=== PATIENT | male | born 1945 | race Two or more races ===

== ENCOUNTER → 2018-07-21 | Day surgery (SDC) | payer MEDICARE, OTHER ==
[2018-07-18 14:53] LABS: Basophils # (auto) 0 uL; Lymphocytes # (auto) 2.5 uL; Neutrophils # (auto) 6.4 uL; Nucleated Red Blood Cells % 0.1 %; White Blood Cell 10.4 10^3/uL (4.4-10.8)
[2018-07-18 14:55] LABS: Basophils % (auto) 0.3 % (0.0-2.0); Eosinophils # (auto) 0.4 uL; Eosinophils % (auto) 3.6 % (0.0-7.0); Hematocrit 40.5 % (41.0-53.0); Mean Corpuscular Hemoglobin 22.2 pg (28.0-32.0); Mean Corpuscular Hgb Conc. 32.1 g/dL (32.0-36.0); Mean Corpuscular Volume 69.1 fL (80.0-100.0); Monocytes # (auto) 1.1 uL; Monocytes % (auto) 10.4 % (0.0-12.0); Neutrophils % (auto) 61.7 % (37.0-80.0); Platelet Count (auto) 190 10^3/uL (140-450); Red Blood Cells 5.85 10^6/uL (4.5-5.90); Red Cell Distribution Width 16.2 % (11.8-14.3)
[2018-07-18 15:24] LABS: INR 0.93 (0.9-1.15); Partial Thromboplastin Time 29.9 sec (23.78-33.04)
[~2018-07-21] VITALS: Ht 170.2 cm; Wt 79.4 kg
[~2018-07-21] MED LIST: ALLO300T2 PO; CETI-120 PO; FLUN0.02; LACTCAP3 OR; LIDO5DIS21 TOP; MAGN250T3 PO; METO25TA5 PO; MULTTAB61 PO; SERT-275 PO; SODIUM CHLORIDE LOCK 10 ML ONE; TAMS0.4C36 PO; TEMA30CA PO; diphenhdrAMINE HCL 50 MG/1 ML VL ONE
[2018-07-21] MEDS: fentaNYL CITRATE 100 MCG/2 ML VL ONE ×2 (12:10→12:14)
[2018-07-21] MEDS: MIDAZOLAM HCL 5 MG/ML-1ML VIAL ONE ×2 (12:10→12:14)
[2018-07-21 13:06] VITALS: BP 132/78
== END | disposition home or self-care (01) ==
LOC: GI 09:58
PROVIDERS: ATTEND Internal Medicine Gastroenterology
DX: Z12.11 Encounter for screening for malignant neoplasm of colon (principal); D12.3 Benign neoplasm of transverse colon; D12.4 Benign neoplasm of descending colon; K63.5 Polyp of colon; K57.30 Diverticulosis of large intestine without perforation or abscess without bleeding
CPT/HCPCS: 36415; 45380; 85025; 85610; 85730; J1200; J2250; J3010; J7030; G0500

== ENCOUNTER → 2019-05-21 | Outpatient (CLI) | payer MEDICARE, OTHER ==
[~2019-05-21] VITALS: Ht 170.2 cm; Wt 81.6 kg
[~2019-05-21] MED LIST changes: +ADENOSINE 69 MG in GIVE UN-DILUTED 0 ML IV STA; -SODIUM CHLORIDE LOCK 10 ML ONE; -diphenhdrAMINE HCL 50 MG/1 ML VL ONE
== END | disposition home or self-care (01) ==
LOC: XYW 09:56
PROVIDERS: ATTEND Internal Medicine
DX: I10 Essential (primary) hypertension (principal); R07.9 Chest pain, unspecified; R06.00 Dyspnea, unspecified
CPT/HCPCS: 78452; 93017; A9500; J0153

== ENCOUNTER → 2020-01-26 | Outpatient (CLI) | payer MEDICARE, OTHER ==
[~2020-01-26] MED LIST changes: -ADENOSINE 69 MG in GIVE UN-DILUTED 0 ML IV STA; +MULT-1018 PO; -MULTTAB61 PO
[2020-01-26 11:12] LABS: Basophils # (auto) 0.1 10 ^3/uL (0-0.2); Eosinophils # (auto) 0.4 10 ^3/uL (0-0.8); Lymphocytes # (auto) 2.6 10 ^3/uL (0.4-5.4); Mean Corpuscular Hgb Conc. 31.6 g/dL (32.0-36.0)
[2020-01-26 11:14] LABS: Basophils % (auto) 0.6 % (0.0-2.0); Eosinophils % (auto) 3.5 % (0.0-7.0); Hematocrit 41.2 % (41.0-53.0); Mean Corpuscular Hemoglobin 21.9 pg (28.0-32.0); Mean Corpuscular Volume 69.4 fL (80.0-100.0); Monocytes % (auto) 10.3 % (0.0-12.0); Neutrophils % (auto) 59.6 % (37.0-80.0); Nucleated Red Blood Cells % 0.2 %; Platelet Count (auto) 200 10^3/uL (140-450); Red Blood Cells 5.93 10^6/uL (4.5-5.90); Red Cell Distribution Width 15.8 % (11.8-14.3); White Blood Cell 10.1 10^3/uL (4.4-10.8)
[2020-01-26 11:44] LABS: Albumin 3.7 g/dL (3.4-5.0); Calcium 8.6 mg/dL (8.5-10.1); Potassium 3.5 mmol/L (3.5-5.1)
[2020-01-26 11:48] LABS: BUN/Creatinine Ratio 12.1; Total Protein 8.1 g/dL (6.4-8.2); Uric Acid 9.4 mg/dL (3.5-7.2)
== END | disposition home or self-care (01) ==
LOC: LAB 10:52
PROVIDERS: ATTEND Internal Medicine
DX: N40.0 Benign prostatic hyperplasia without lower urinary tract symptoms (principal); I10 Essential (primary) hypertension; D72.829 Elevated white blood cell count, unspecified; K76.0 Fatty (change of) liver, not elsewhere classified
CPT/HCPCS: 36415; 80053; 84153; 84550; 85025

== ENCOUNTER 2020-12-08 09:08 | Day surgery (SDC) | payer MEDICARE, OTHER ==
[2020-12-05 09:06] LABS: Basophils # (auto) 0.1 10 ^3/uL (0-0.2); Nucleated Red Blood Cells % 0.2 %
[2020-12-05 09:08] LABS: Basophils % (auto) 0.5 % (0.0-2.0); Eosinophils # (auto) 0.4 10 ^3/uL (0-0.8); Eosinophils % (auto) 3.7 % (0.0-7.0); Hematocrit 40.5 % (41.0-53.0); Hemoglobin 12.7 g/dL (13.5-17.5); Lymphocytes # (auto) 2.7 10 ^3/uL (0.4-5.4); Lymphocytes % (auto) 22.2 % (10.0-50.0); Mean Corpuscular Hemoglobin 21.7 pg (28.0-32.0); Mean Corpuscular Hgb Conc. 31.3 g/dL (32.0-36.0); Mean Corpuscular Volume 69.1 fL (80.0-100.0); Monocytes # (auto) 1.1 10 ^3/uL (0-1.3); Monocytes % (auto) 8.8 % (0.0-12.0); Neutrophils # (auto) 7.8 10 ^3/uL (1.6-8.6); Neutrophils % (auto) 64.8 % (37.0-80.0); Red Blood Cells 5.87 10^6/uL (4.5-5.90); Red Cell Distribution Width 16.5 % (11.8-14.3)
[2020-12-05 09:20] LABS: INR 0.95 (0.9-1.15); Partial Thromboplastin Time 28.8 sec (23.0-31.2)
[2020-12-05 09:29] LABS: Potassium 3.3 mmol/L (3.5-5.1)
[2020-12-05 09:36] LABS: Albumin 3.9 g/dL (3.4-5.0); BUN/Creatinine Ratio 12.9; Bilirubin, Total 0.8 mg/dL (0.2-1.0); Calcium 8.7 mg/dL (8.5-10.1); Total Protein 7.9 g/dL (6.4-8.2)
[2020-12-05 10:26] LABS: Urine Bacteria NONE SEEN /hpf (None Seen); Urine Blood Negative /uL (Negative); Urine Mucus FEW (None Seen); Urine Specific Gravity 1.025 (1.001-1.035); Urine WBC 7 /hpf (0 - 3)
[~2020-12-08] VITALS: Ht 170.2 cm; Wt 76.7 kg
[~2020-12-08 09:08] MED LIST changes: +CHLO25TA2 PO; +DOXE10CA PO; +FLUT250M2 INH; +PANT1INJ3 PO; -SERT-275 PO; +SERT25TA14 PO
[2020-12-08] MEDS ORDERED: fentaNYL CITRATE 100 MCG/2 ML VL ONE (09:45)
[2020-12-08] MEDS ORDERED: PROPOFOL 10 MG/ML 20 ML IV ONE (09:45)
[2020-12-08] MEDS ORDERED: BUPIVACAINE/DEXTROSE MPF 0.75% 2 ML AMP IT ONE (09:45)
[2020-12-08] MEDS ORDERED: ONDANSETRON HCL 4 MG/2 ML VIAL ONE (09:45)
[2020-12-08] MEDS ORDERED: MIDAZOLAM HCL 2MG/2ML 2ml VIAL (1mg/ml) ONE ×2 (09:45→11:03)
[2020-12-08] MEDS ORDERED: SODIUM CHLORIDE LOCK 10 ML ONE (09:45)
[2020-12-08] MEDS ORDERED: CIPROFLOXACIN 400MG/200ML 200 ML IV ONE (10:36)
[2020-12-08] MEDS ORDERED: SUCCINYLCHOLINE CHLORIDE 20 MG/ML 10ML VIAL IV ONE (11:00)
[2020-12-08] MEDS ORDERED: TETRACAINE 1% INJ 2 ML VIAL IJ ONE (11:00)
[2020-12-08] MEDS ORDERED: LIDOCAINE 2% (LOCAL ANESTH.) PF 5ml SDV ONE (11:19)
[2020-12-08] MEDS ORDERED: MORPHINE SULFATE 4 MG/ML SYR/VIAL IV PRN (11:45)
[2020-12-08] MEDS ORDERED: ONDANSETRON HCL 4 MG/2 ML VIAL IV PRN (11:45)
[2020-12-08] MEDS ORDERED: HYDROmorphone HCL 2 MG/ML VL IV PRN (11:45)
[2020-12-08 17:30] VITALS: BP 134/68
== END 2020-12-08 18:00 | disposition home or self-care (01) ==
LOC: SUR 09:08
PROVIDERS: ATTEND Urology
DX: N40.1 Benign prostatic hyperplasia with lower urinary tract symptoms (principal); C67.4 Malignant neoplasm of posterior wall of bladder; N13.8 Other obstructive and reflux uropathy; I11.0 Hypertensive heart disease with heart failure; I50.30 Unspecified diastolic (congestive) heart failure; J44.9 Chronic obstructive pulmonary disease, unspecified; K21.9 Gastro-esophageal reflux disease without esophagitis; E78.5 Hyperlipidemia, unspecified; F41.9 Anxiety disorder, unspecified; M10.9 Gout, unspecified; F32.9 Major depressive disorder, single episode, unspecified; Z91.09 Other allergy status, other than to drugs and biological substances; Z79.899 Other long term (current) drug therapy; Z98.890 Other specified postprocedural states; Z87.891 Personal history of nicotine dependence; Z20.822 Contact with and (suspected) exposure to COVID-19
CPT/HCPCS: 36415; 52240; 52601; 80053; 81001; 85025; 85610; 85730; J0330; J0744; J2001; J2250; J2405; J2704; J3010; U0003

== ENCOUNTER → 2020-12-15 | Outpatient (CLI) | payer MEDICARE, OTHER ==
[2020-12-15 12:06] LABS: Urine Bacteria FEW /hpf (None Seen); Urine Blood 3+ /uL (Negative); Urine Mucus FEW (None Seen); Urine Specific Gravity 1.017 (1.001-1.035)
[2020-12-15 12:07] LABS: Urine WBC 5 /hpf (0 - 3)
== END | disposition home or self-care (01) ==
LOC: LAB 11:32
PROVIDERS: ATTEND Urology
DX: R31.9 Hematuria, unspecified (principal)
CPT/HCPCS: 81001; 87086

== ENCOUNTER → 2021-07-24 | Outpatient (CLI) | payer MEDICARE, OTHER | END | disposition home or self-care (01) | LOC: XYW 08:41 | PROVIDERS: ATTEND Internal Medicine | DX: I08.8 Other rheumatic multiple valve diseases (principal); I10 Essential (primary) hypertension | CPT/HCPCS: 93306 ==

== ENCOUNTER → 2021-10-17 | Outpatient (CLI) | payer MEDICARE, OTHER | END | disposition home or self-care (01) | LOC: LAB 10:22 | PROVIDERS: ATTEND Internal Medicine Pulmonary Disease | DX: Z01.812 Encounter for preprocedural laboratory examination (principal); Z20.822 Contact with and (suspected) exposure to COVID-19 | CPT/HCPCS: 36415; 87426 ==

== ENCOUNTER → 2021-10-18 | Outpatient (CLI) | payer MEDICARE, OTHER ==
[~2021-10-18] MED LIST changes: +ALBUTEROL SULF 2.5 MG/0.5ML(0.5%) NEB SOLN ONE
== END | disposition home or self-care (01) ==
LOC: RT 11:19
PROVIDERS: ATTEND Internal Medicine
DX: R06.02 Shortness of breath (principal)
CPT/HCPCS: 94060; 94727; 94729

== ENCOUNTER → 2021-11-30 | Outpatient (CLI) | payer MEDICARE, OTHER ==
[~2021-11-30] MED LIST changes: -ALBUTEROL SULF 2.5 MG/0.5ML(0.5%) NEB SOLN ONE
== END | disposition home or self-care (01) ==
LOC: XY 07:53
PROVIDERS: ATTEND Internal Medicine
DX: R06.02 Shortness of breath (principal); I10 Essential (primary) hypertension; E78.5 Hyperlipidemia, unspecified
CPT/HCPCS: 78452; 93017; A9500

== ENCOUNTER 2024-07-28 08:19 | Day surgery (SDC) | payer MEDICARE, OTHER ==
[2024-07-23 12:22] LABS: Urine Bacteria None Seen /hpf (None Seen); Urine WBC None Seen /hpf (0 - 3)
[2024-07-23 12:30] LABS: Eosinophils # (auto) 0.2 10 ^3/uL (0-0.8); Hemoglobin 12.8 g/dL (13.5-17.5); Neutrophils # (auto) 6.9 10 ^3/uL (1.6-8.6); Red Blood Cells 5.82 10^6/uL (4.5-5.90)
[2024-07-23 12:33] LABS: Basophils # (auto) 0.1 10 ^3/uL (0-0.2); Basophils % (auto) 0.8 % (0.0-2.0); Hematocrit 40.3 % (41.0-53.0); Lymphocytes # (auto) 2.3 10 ^3/uL (0.4-5.4); Lymphocytes % (auto) 21.6 % (10.0-50.0); Mean Corpuscular Hgb Conc. 31.7 g/dL (32.0-36.0); Mean Corpuscular Volume 69.2 fL (80.0-100.0); Monocytes # (auto) 1.2 10 ^3/uL (0-1.3); Neutrophils % (auto) 64.6 % (37.0-80.0); Nucleated Red Blood Cells % 0.1 %; Platelet Count (auto) 229 10^3/uL (140-450); Red Cell Distribution Width 15.6 % (11.8-14.3); White Blood Cell 10.8 10^3/uL (4.4-10.8)
[2024-07-23 12:44] LABS: INR 0.99 (0.9-1.15); Partial Thromboplastin Time 29.6 SEC (24.5-34.5); Prothrombin Time 10.5 sec (9.3-11.8)
[2024-07-23 13:07] LABS: Anisocytosis Slight; Hypochromia Slight; Platelet Estimate Adequate; Target Cell FEW
[2024-07-23 13:10] LABS: Alanine Aminotransferase 24 U/L (7-40); Alkaline Phosphatase 66 U/L (46-116); Anion Gap 5 (5-15); Aspartate Aminotransferase 29 U/L (13-40); BUN/Creatinine Ratio 15.3 (10.0-20.0); Blood Urea Nitrogen 19 mg/dL (9-23); Carbon Dioxide 29 mmol/L (20-31); Chloride 105 mmol/L (98-107); Glucose 82 mg/dL (74-106); Potassium 4.4 mmol/L (3.5-5.1); Sodium 139 mmol/L (136-145)
[2024-07-23 13:11] LABS: Albumin 4.4 g/dL (3.2-4.8); Total Protein 7.6 g/dL (5.7-8.2)
[2024-07-23 13:17] LABS: Urine Blood Negative /uL (Negative); Urine Clarity Clear (Clear); Urine Color Yellow (Yellow); Urine Protein, UAD Negative (Negative); Urine Specific Gravity 1.017 (1.001-1.035); Urine Urobilinogen Normal (Negative)
[~2024-07-28] VITALS: Ht 170.2 cm; Wt 72.6 kg
[~2024-07-28 08:19] MED LIST changes: +ACET-1881 PO; +ALBUAER3 IN; -ALLO300T2 PO; -CHLO25TA2 PO; +DIPH-616 PO; -FLUN0.02; +FLUT1AER6 IN; +IPRA0.00 IN; -LIDO5DIS21 TOP; +LISI2.5T47 PO; -MAGN250T3 PO; +MECL1TAB42 PO; -METO25TA5 PO; -PANT1INJ3 PO; +PANT40T PO; -SERT25TA14 PO; +SERT25TA28 PO; -TAMS0.4C36 PO; -TEMA30CA PO; +[UNRECOGNIZED DRUG - CODE] DT; +[UNRECOGNIZED DRUG - CODE] SC
[2024-07-28 12:20] VITALS: PULSE 57; RESP 14; O2SAT 99
[2024-07-28] MEDS ORDERED: SODIUM CHLORIDE LOCK 10 ML ONE (12:20)
[2024-07-28] MEDS: MIDAZOLAM HCL 5 MG/ML-1ML VIAL ONE (12:26)
[2024-07-28] MEDS: fentaNYL CITRATE 100 MCG/2 ML VL ONE (12:26)
[2024-07-28] MEDS: diphenhdrAMINE HCL 50 MG/1 ML VL ONE (12:26)
[2024-07-28] MEDS: LIDOCAINE VISCOUS 2% 15ML UD ONE (12:26)
--- NOTE | 2024-07-28 12:42 | DVHOP2 ---
Operative Report DATE OF OPERATION: 07/28/24 PROCEDURE: Upper Endoscopy with biopsy. PREOPERATIVE INDICATION: The patient is a 78 -year-old male undergoing endoscopy for anemia and chronic GERD POSTOPERATIVE DIAGNOSES: 1. 2 cm sliding-type hiatal hernia with slightly irregular squamocolumnar junction grade a erosive esophagitis 2. There were some yellowish whitish plaques in the proximal esophagus suggestive of candidal esophagitis from which biopsies were obtained 3. [id number] gastritis with pre-pyloric antral gastric erosions 4. Patient had mild duodenitis and there was an abnormal area of narrowing or stricture in the postbulbar area likely healed duodenal ulcer with no active ulceration at this time PROCEDURE PERFORMED BY: Keegan Cheema GI NURSE: Samaria SCOPE: Olympus videoendoscope. ASA CLASS: 2. PREOPERATIVE MEDICATIONS: Versed 3 mg, Fentanyl 75 mcg, Benadryl 50 mg I administered moderate sedation throughout this _8_ minutes procedure. An independent trained observer pushed medications at my direction, and monitored the patient's level of consciousness and physiological status throughout. PROCEDURE IN DETAIL: After obtaining an informed consent, the patient was placed on left lateral decubitus position. The patient was then sedated with the above medications. A bite block was placed between his teeth. The endoscope was then passed through the oropharynx, into the esophagus, and through the stomach and pylorus up to the second and third part of the duodenum. The endoscope was then withdrawn. The 2nd and 3rd part of the duodenal were normal. There was good bile drainage. The duodenal bulb showed duodenitis. In the postbulbar area there was an area of narrowing or stricture which appeared inflammatory and possibly related to a healed duodenal ulcer At this time no active ulceration was seen and there was no bleeding. The pre- pyloric area antrum and body showed moderate gastritis with pre-pyloric antral gastric erosions. On retroflexion the fundus cardia and angularis were normal. The endoscope was then withdrawn into the distal esophagus. Patient had a 2 cm sliding-type hiatal hernia with slightly irregular squamocolumnar junction and grade a erosive esophagitis. GE junction biopsies were obtained. In the proximal esophagus the patient had some whitish plaques suggestive of candidal esophagitis from which biopsies were also obtained. Oropharynx was normal. The patient tolerated the procedure well without difficulty. COMPLICATIONS : None SPECIMENS: Duodenal biopsies Gastric biopsies Esophageal biopsies DISPOSITION: Stable D/C to home PLAN: 1. Await for biopsy result 2. Will place pt on Protonix 40 mg bid 3. Nystatin swish and swallow 5 mL p.o. three times a day 4. Resume soft mechanical diet advance as tolerated 5. Outpatient follow up with me in 2-4 weeks to review results and discuss further management KEEGAN CHEEMA MD Jul 28, 2024 12:42
[2024-07-28] MEDS: MIDAZOLAM HCL 2MG/2ML 2ml VIAL (1mg/ml) ONE (12:43)
[2024-07-28 13:07] VITALS: RESP 17; TEMP 97.4; O2SAT 99
--- NOTE | 2024-07-28 13:10 | DVHOP2 ---
Operative Report DATE OF OPERATION: 07/28/24 PROCEDURE: Colonoscopy with snare polypectomy. PREOPERATIVE INDICATION: The patient is a 78 -year-old male undergoing colonoscopy for surveillance with personal history of colon polyps POSTOPERATIVE DIAGNOSES: 1. Two less than 1 cm benign-appearing ascending colon polyps one removed by cold biopsy and the other by cold snare polypectomy 2. There were two less than 1 cm benign-appearing transverse colon polyps one removed by hot snare polypectomy and the other by cold snare polypectomy 3. There were two less than 5 mm benign-appearing descending colon polyps one removed by cold snare polypectomy and the other by cold biopsy forceps 4. There was a 2 mm benign-appearing sigmoid polyp that was seen and removed by cold biopsy forceps 5. Trace internal hemorrhoids otherwise normal examination up to the cecum and terminal ileum PROCEDURE PERFORMED BY: Keegan Cheema M.D. SCOPE: Olympus videocolonoscope. ASA CLASS: 2. PREOPERATIVE MEDICATIONS: Versed 5 mg, Fentanyl 100 mcg, Benadryl 50 mg PROCEDURE IN DETAIL: After obtaining an informed consent, the patient was placed on left lateral decubitus position. He was then sedated with the above medications. A rectal examination was performed that was normal. The colonoscope was then passed through the anus into the rectosigmoid and through the descending, transverse, and ascending colon up to the cecum with visualization of the appendiceal orifice, base of the cecum and the ileocecal valve. The colonoscope was then withdrawn. The distal 5-10 cm of the terminal ileum were normal. There were two less than 1 cm benign-appearing ascending colon polyps. One was removed by cold biopsy forceps and the other by cold snare polypectomy There were two less than 1 cm benign-appearing transverse colon polyps one was removed by hot snare polypectomy and the other by cold snare polypectomy There were two less than 5 mm benign-appearing descending colon polyps one was removed by cold biopsy and the other by cold snare polypectomy. There was also a 2 mm benign-appearing sigmoid polyp that was seen and removed by cold biopsy forceps. On retroflexion and straight on view he had trace to 1+ internal hemorrhoids The patient tolerated the procedure well without difficulty. WITHDRAWAL TIME: 15 minutes QUALITY OF THE PREP: Loraine Bowel Prep score: 9. COMPLICATIONS : None SPECIMENS: Ascending colon polyps x2 Transverse colon polyps x2 Descending colon polyps x2 Sigmoid polyp x1 DISPOSITION: Stable D/C to home PLAN: 1. Repeat colonoscopy base on biopsy result likely in 2-3 years 2. Resume GI soft diet advance as tolerated 3. Hold aspirin NSAIDs and blood thinners for one week 4. Outpatient follow up with me in 2-4 weeks to review results and discuss further management KEEGAN CHEEMA MD Jul 28, 2024 13:10
[2024-07-28 13:35] VITALS: BP 115/66; PULSE 70; RESP 17; O2SAT 99
== END 2024-07-28 15:43 | disposition home or self-care (01) ==
LOC: GI 08:19
PROVIDERS: ATTEND Internal Medicine Gastroenterology
DX: D50.9 Iron deficiency anemia, unspecified (principal); D12.2 Benign neoplasm of ascending colon; D12.4 Benign neoplasm of descending colon; D12.5 Benign neoplasm of sigmoid colon; D12.3 Benign neoplasm of transverse colon; K29.50 Unspecified chronic gastritis without bleeding; B37.81 Candidal esophagitis; K29.80 Duodenitis without bleeding; K21.9 Gastro-esophageal reflux disease without esophagitis; K44.9 Diaphragmatic hernia without obstruction or gangrene; K22.10 Ulcer of esophagus without bleeding; K25.9 Gastric ulcer, unspecified as acute or chronic, without hemorrhage or perforation; J45.909 Unspecified asthma, uncomplicated; Z85.51 Personal history of malignant neoplasm of bladder; Z86.0100 Personal history of colon polyps, unspecified
CPT/HCPCS: 36415; 43239; 45380; 45385; 80053; 81001; 85025; 85610; 85730; 88305; 88312; 88342; J1200; J2250; J3010; 99152; 99153

== ENCOUNTER → 2024-11-03 | Outpatient (CLI) | payer MEDICARE, OTHER ==
[2024-11-03 11:14] LABS: Basophils # (auto) 0 10 ^3/uL (0-0.2); Basophils % (auto) 0.5 % (0.0-2.0); Eosinophils # (auto) 0.4 10 ^3/uL (0-0.8); Mean Corpuscular Hemoglobin 21.9 pg (28.0-32.0); Monocytes # (auto) 0.9 10 ^3/uL (0-1.3)
[2024-11-03 11:17] LABS: Eosinophils % (auto) 4.2 % (0.0-7.0); Hematocrit 39.9 % (41.0-53.0); Hemoglobin 12.8 g/dL (13.5-17.5); Lymphocytes # (auto) 2.3 10 ^3/uL (0.4-5.4); Lymphocytes % (auto) 25.8 % (10.0-50.0); Mean Corpuscular Volume 68.4 fL (80.0-100.0); Monocytes % (auto) 9.5 % (0.0-12.0); Neutrophils # (auto) 5.4 10 ^3/uL (1.6-8.6); Nucleated Red Blood Cells % 0.1 %; Platelet Count (auto) 210 10^3/uL (140-450); Red Blood Cells 5.83 10^6/uL (4.5-5.90); Red Cell Distribution Width 15.8 % (11.8-14.3)
[2024-11-03 11:45] LABS: Alanine Aminotransferase 31 U/L (7-40); Albumin 4.6 g/dL (3.2-4.8); Alkaline Phosphatase 59 U/L (46-116); Anion Gap 8 (5-15); Aspartate Aminotransferase 39 U/L (13-40); BUN/Creatinine Ratio 12.3 (10.0-20.0); Blood Urea Nitrogen 15 mg/dL (9-23); Carbon Dioxide 27 mmol/L (20-31); Chloride 105 mmol/L (98-107); HDL Cholesterol 56 mg/dL (40-59); Potassium 4.6 mmol/L (3.5-5.1); Sodium 140 mmol/L (136-145); Total Protein 7.6 g/dL (5.7-8.2); Triglycerides 93 mg/dL (< 150)
[2024-11-03 11:48] LABS: Free T3 3.3 pg/mL (2.3-4.2)
[2024-11-03 11:49] LABS: Free T4 (Free Thyroxine) 1.31 ng/dL (0.89-1.76)
[2024-11-03 11:51] LABS: Bilirubin, Total 1.4 mg/dL (0.2-1.0); Cholesterol 204 mg/dL (< 200); Glucose 107 mg/dL (74-106); LDL Cholesterol 127 mg/dL (< 100)
== END | disposition home or self-care (01) ==
LOC: LAB 10:54
PROVIDERS: ATTEND Internal Medicine
DX: I35.1 Nonrheumatic aortic (valve) insufficiency (principal); I10 Essential (primary) hypertension; E78.5 Hyperlipidemia, unspecified
CPT/HCPCS: 36415; 80053; 80061; 84439; 84443; 84481; 85025

== ENCOUNTER 2025-01-19 09:48 | Outpatient (CLI) | payer MEDICARE, OTHER ==
[~2025-01-19] VITALS: Ht 30.5 cm; Wt 0.0 kg
[2025-01-19] MEDS: REGADENOSON 0.4 MG/5 ML SYRG IV ONE ×2 (11:46→11:57)
--- NOTE | 2025-01-20 17:19 | DVHSR ---
APPROVED REPORT Exam: Nuclear Stress Test Indication: SOB Stress Tech: Casi Sparks Ht: 5 ft 7 in Wt: 163 lbs BSA: 1.85 m2 HR: 50 bpm BP: 164/68 mmHg BMI: 25.52 Rhythm: Bradycardia Medical History Medical History: HTN, EF 60% Allergies: No known drug allergies Stress Test Details Stress Test: Pharmacologic stress testing performed using 0.4 mg of regadenoson per 5 mL given IV ov er 10 seconds. Reason for pharmacologic stress test: SOB. HR Resting HR: 50 bpmMax Heart Rate (APMHR): 141.887395 bpm Max HR Achieved: 83 bpmTarget HR (85% APMHR): 119.069053 bpm % of APMHR: 58.87 Recovery HR: 73 bpm BP Resting BP: 164/68 mmHg Recovery BP: 140/66 mmHg ECG Resting ECG: Sinus Bradycardia Clinical Reason for Termination: Completed protocol Nurse Comments Uneventful stress test performed per protocol. Patient tolerated well and was taken back to [facility] via wheel chair in stable condition by tech. Stress ECG Conclusion lvef 52% no stress induced ischemia noted NM EXAM: Myocardial Perfusion REST/STRESS Imaging Protocol: Rest Tc-99m/Stress Tc-99m 1 day Resting Data Rest SPECT myocardial perfusion imaging was performed in supine position 60 minutes following the int ravenous injection of 12.1 mCi of Tc-99m Sestamibi. Time of rest injection: 10:30 Date: 01/19/2025 Time of rest imagin:30 Date: 01/19/2025 Administration Route: IV Administration Site: Left Arm Pharmacologic Stress Pharmacologic stress test was performed by injecting Regadenoson 0.4 mg IV push followed by the intra venous injection of 28.8 mCi of Tc-99m Sestamibi. Time of stress injection: 12:05 Date: 01/19/2025 Time of stress imagin:05 Date: 01/19/2025 Administration Route: IV Administration Site: Left Arm Gated Stress SPECT was performed 60 minutes after stress injection. The images were gated to evaluate regional wall motion and calculate left ventricular ejection fracti on. Stress only was performed in the Supine position. Nuclear Conclusion Nuclear Findings: negative for ischemia lvef 52% no stress induced ischemia noted
== END 2025-01-19 17:00 | disposition home or self-care (01) ==
LOC: XYW 09:48
PROVIDERS: ATTEND Internal Medicine
DX: R06.02 Shortness of breath (principal); I35.1 Nonrheumatic aortic (valve) insufficiency; I10 Essential (primary) hypertension
CPT/HCPCS: 78452; 93017; A9500; J2785

== ENCOUNTER 2025-04-29 10:47 | Outpatient (CLI) | payer MEDICARE, OTHER ==
[2025-04-29 11:08] LABS: Hematocrit 42.0 % (41.0-53.0); Hemoglobin 13.6 g/dL (13.5-17.5); Mean Corpuscular Hemoglobin 22.8 pg (28.0-32.0); Mean Corpuscular Volume 70.2 fL (80.0-100.0); Nucleated Red Blood Cells % 0.1 %
[2025-04-29 11:33] LABS: Albumin 4.4 g/dL (3.2-4.8); Alkaline Phosphatase 62 U/L (46-116); Anion Gap 8 (5-15); BUN/Creatinine Ratio 10.9 (10.0-20.0); Blood Urea Nitrogen 15 mg/dL (9-23); Calcium 9.3 mg/dL (8.7-10.4); Carbon Dioxide 28 mmol/L (20-31); Chloride 104 mmol/L (98-107); Cholesterol 197 mg/dL (< 200); Glucose 104 mg/dL (74-106); HDL Cholesterol 55 mg/dL (40-59); Potassium 4.6 mmol/L (3.5-5.1); Sodium 140 mmol/L (136-145); Total Protein 7.8 g/dL (5.7-8.2); Triglycerides 101 mg/dL (< 150)
[2025-04-29 11:36] LABS: Alanine Aminotransferase 45 U/L (7-40); Bilirubin, Total 1.4 mg/dL (0.2-1.0)
[2025-04-29 11:38] LABS: Free T3 3.1 pg/mL (2.3-4.2)
[2025-04-29 11:39] LABS: Free T4 (Free Thyroxine) 1.3 ng/dL (0.89-1.76)
== END 2025-04-29 17:00 | disposition home or self-care (01) ==
LOC: LAB 10:47
PROVIDERS: ATTEND Internal Medicine
DX: I10 Essential (primary) hypertension (principal); I35.1 Nonrheumatic aortic (valve) insufficiency; E78.5 Hyperlipidemia, unspecified
CPT/HCPCS: 36415; 80053; 80061; 84439; 84443; 84481; 85025